=== PATIENT | female | born 1940 | race Caucasian/White ===

== ENCOUNTER 2019-03-11 15:21 | Day surgery (SDC) | payer MEDICARE ==
[2019-03-11 17:54] VITALS: BMI 14.8
[2019-03-11] MEDS ORDERED: diphenhydrAMINE 25 MG CAP PO SCH (18:00)
[2019-03-11] MEDS ORDERED: Acetaminophen 500 MG TAB PO SCH (18:00)
[2019-03-11 19:44] VITALS: TEMP 98.1
[2019-03-12 00:04] VITALS: BP 114/58
[2019-03-12] MEDS ORDERED: FLU VACC TS2019-20(65YR UP)/PF 180 MCG/0.5 ML SYRINGE IM ONE (09:00)
== END 2019-03-11 23:59 | disposition home or self-care (01) ==
LOC: ERS 15:21 → EDSTATUS 16:15 → SDC/OP 17:04 → 2SW 17:15 → SDC/OP 23:59
PROVIDERS: ATTEND Internal Medicine Hematology & Oncology
PROC: 30233N1 Transfusion of Nonautologous Red Blood Cells into Peripheral Vein, Percutaneous Approach (ICD-10-PCS; principal; 2019-03-11)
DX: D64.9 Anemia, unspecified (principal); D69.6 Thrombocytopenia, unspecified
CPT/HCPCS: 36430; 86850; 86900; 86901; 86920; P9016; Q0163

== ENCOUNTER 2019-03-14 12:47 | Day surgery (SDC) | payer MEDICARE ==
[2019-03-14] MEDS ORDERED: diphenhydrAMINE 25 MG CAP PO SCH (13:15)
[2019-03-14] MEDS ORDERED: Acetaminophen 500 MG TAB PO SCH (13:15)
[2019-03-14] MEDS ORDERED: Sodium Chloride 0.9% 20 ML ONE (13:24)
[2019-03-14 14:55] VITALS: BP 117/58; TEMP 98.1
== END 2019-03-14 14:55 | disposition home or self-care (01) ==
LOC: ONC/OP 12:47
PROVIDERS: ATTEND Internal Medicine Hematology & Oncology
PROC: 30233N1 Transfusion of Nonautologous Red Blood Cells into Peripheral Vein, Percutaneous Approach (ICD-10-PCS; principal; 2019-03-14)
PROC: 30233R1 Transfusion of Nonautologous Platelets into Peripheral Vein, Percutaneous Approach (ICD-10-PCS; 2019-03-14)
DX: D69.6 Thrombocytopenia, unspecified (principal)
CPT/HCPCS: 36430; 86900; 86901; J1642; P9035; Q0163

== ENCOUNTER 2019-03-28 12:41 | Day surgery (SDC) | payer MEDICARE ==
[2019-03-28] MEDS ORDERED: Acetaminophen 500 MG TAB PO SCH (13:00)
[2019-03-28] MEDS ORDERED: diphenhydrAMINE 25 MG CAP PO SCH (13:00)
[2019-03-28] MEDS ORDERED: Sodium Chloride 0.9% 20 ML ONE (13:18)
[2019-03-28 15:27] VITALS: TEMP 98.5
[2019-03-28 15:41] VITALS: BP 101/55
== END 2019-03-28 15:41 | disposition home or self-care (01) ==
LOC: ONC/OP 12:41
PROVIDERS: ATTEND Internal Medicine Hematology & Oncology
PROC: 30233R1 Transfusion of Nonautologous Platelets into Peripheral Vein, Percutaneous Approach (ICD-10-PCS; principal; 2019-03-28)
DX: D69.6 Thrombocytopenia, unspecified (principal)
CPT/HCPCS: 36430; 80053; 82248; 83615; 83735; 84100; 84550; 86900; 86901; J1642; P9035; Q0163

== ENCOUNTER 2019-04-04 13:28 | Day surgery (SDC) | payer MEDICARE ==
[2019-04-04] MEDS ORDERED: diphenhydrAMINE 25 MG CAP PO SCH (14:00)
[2019-04-04] MEDS ORDERED: Acetaminophen 500 MG TAB PO SCH (14:00)
[2019-04-04] MEDS ORDERED: Loperamide HCl 2 MG CAP PO SCH (15:00)
[2019-04-04] MEDS ORDERED: Sodium Chloride 0.9% 10 ML ONE ×2 (15:18→19:11)
[2019-04-04] MEDS ORDERED: Sodium Chloride 0.9% 0 ML ONE (15:18)
[2019-04-04 18:08] VITALS: TEMP 98.7
[2019-04-04 19:31] VITALS: BP 110/56
== END 2019-04-04 19:25 | disposition home or self-care (01) ==
LOC: ONC/OP 13:28
PROVIDERS: ATTEND Internal Medicine Hematology & Oncology
PROC: 30233H1 Transfusion of Nonautologous Whole Blood into Peripheral Vein, Percutaneous Approach (ICD-10-PCS; principal; 2019-04-04)
DX: D64.9 Anemia, unspecified (principal); D69.6 Thrombocytopenia, unspecified
CPT/HCPCS: 36430; 80053; 82248; 83615; 83735; 84100; 84550; 86850; 86900; 86901; J1642; P9016; P9035; Q0163

== ENCOUNTER 2019-04-11 20:05 | Inpatient (IN) | payer MEDICARE ==
[2019-04-11] MEDS ORDERED: Norepinephrine 8 MG/0.9% NS 250 ML IVPB PRN (20:31)
[2019-04-11] MEDS ORDERED: Acetaminophen 650 MG/20.3 ML UDCUP PO PRN (20:31)
[2019-04-11] MEDS ORDERED: Mag-Al 1200 mg/1200 mg/30 ML UDCUP PO PRN (20:31)
[2019-04-11] MEDS ORDERED: Ondansetron PF 4 MG/2 ML Vial IVP PRN (20:31)
[2019-04-11] MEDS ORDERED: CCU Electrolyte Replacement 1 EACH IVPB ONE (20:31)
[2019-04-11] MEDS ORDERED: Ondansetron ODT 4 MG TAB PO PRN (20:34)
[2019-04-11] MEDS ORDERED: HYDROcodone/Acetaminophen 5/325 mg Tablet PO PRN (20:34)
[2019-04-11] MEDS ORDERED: Bisacodyl 5 MG TAB PO PRN (20:34)
[2019-04-11] MEDS ORDERED: Acetaminophen 325 MG TAB PO PRN (20:34)
[2019-04-11] MEDS ORDERED: Potassium Phosphate 12 MMOL in Sodium Chloride 0.9% 250 ML 250 ML IV PRN (20:37)
[2019-04-11] MEDS ORDERED: Potassium Phosphate 9 MMOL in Sodium Chloride 0.9% 100 ML IVPB PRN (20:37)
[2019-04-11] MEDS ORDERED: Magnesium 2 GM/50 ML 2 GM in Premix Bag 1 BAG IVPB PRN (20:37)
[2019-04-11] MEDS ORDERED: Potassium Chloride 40 MEQ in Premix Bag 1 BAG IVPB PRN (20:37)
[2019-04-11] MEDS ORDERED: Potassium Chloride 40 MEQ in Sodium Chloride 0.9% 250 ML 250 ML IVPB PRN (20:37)
[2019-04-11] MEDS ORDERED: Magnesium Oxide 400 MG TAB PO PRN ×2 (20:37)
[2019-04-11] MEDS ORDERED: Potassium Phosphate 15 MMOL in Sodium Chloride 0.9% 250 ML 250 ML IV PRN (20:37)
[2019-04-11] MEDS ORDERED: PHOS-NAK 1 PKT PACK PO PRN ×2 (20:37)
[2019-04-11] MEDS ORDERED: CCU ELECTROLYTE REPLACEMENT PROTOCOL FS PRN (20:37)
[2019-04-11] MEDS ORDERED: Sodium Chloride 0.9% 1,000 ML IV SCH (20:45)
[2019-04-11] MEDS ORDERED: Morphine 2 MG/ML SYRINGE SLOW IVP PRN (20:50)
[2019-04-11] MEDS ORDERED: Vancomycin HCl 1 GM in Premix Bag 1 BAG IVPB SCH (21:00)
[2019-04-11] MEDS ORDERED: Famotidine 20 MG TAB PO SCH (21:00)
--- NOTE | 2019-04-11 21:02 | PDOC.HHP ---
Hospitalist HPI - History of Present Illness Septic shock History of Present Illness: Ms. Crews is a pleasant 79-year-old female with past medical history of AML and extensive use of chemotherapy presents with septic shock. Patient initially presented to [facility], was diagnosed with septic shock from UTI, pancytopenia with the platelet level of 2, and was transferred to [facility] for higher level of care. Patient normally follows up with Dr. Foster who is her medical oncologist. I find the patient in the intensive care unit she is laying flat, resting in the bed in no apparent distress. Patient is oxygenating adequately on room air. Patient is on Levophed to maintain mean arterial blood pressure greater than 65. Patient currently denies pain. She states she is breathing well. She has not noticed any black or blood in her stool. Patient answering questions appropriately though she is slow to answer some questions. Patient admitted to the intensive care unit, discussed the case with gas pump attendant who agrees to consult. We will consult patient's oncologist for continuity of care. Prognosis guarded. Hospitalist ROS - Review of Systems All other systems reviewed; all pertinent +/- noted in HPI/Subj Hospitalist History - Past Medical History Source: patient, old records Cardiac: denies: AFIB, CHF, HTN Pulmonary: denies: CVA/TIA/stroke, congestive heart failure, COPD Gastrointestinal: denies: GI bleed Heme/Onc: reports: Cancer (AML) Musculoskeletal: reports: Osteoarthritis - Past Surgical History Past Surgical History: reports: Other - Family History Family History: reports: hypertension - Social History Smoking Status: Never smoker Alcohol: reports: None Drugs: reports: none Living Situation: With Family Domestic Violence: Negative Activity level: independent ambulation - Exam General Appearance: NAD, awake alert ENT: normocephalic atraumatic, moist mucosa Neck: supple, symmetric, no JVD Heart: no murmur, no gallops, no rubs Respiratory: CTAB, no wheezes, no rales, no ronchi, normal chest expansion, no tachypnea Gastrointestinal: soft, non-tender, non-distended, normal bowel sounds, no palpable masses, no hepatomegaly, no splenomegaly, no bruit Extremities: 1+ LE edema Skin: no rashes Neurological: cranial nerve grossly intact, no focal deficits Musculoskeletal: generalized weakness Psychiatric: normal behavior, oriented to person, flat affect Hospitalist H&P A/P - Problem (1) Septic shock Code(s): A41.9 - SEPSIS, UNSPECIFIED ORGANISM; R65.21 - SEVERE SEPSIS WITH SEPTIC SHOCK Status: Acute (2) UTI (urinary tract infection) Status: Acute (3) Hypotension Status: Acute (4) AML (acute myeloblastic leukemia) Code(s): C92.00 - ACUTE MYELOBLASTIC LEUKEMIA, NOT HAVING ACHIEVED REMISSION Status: Acute (5) Pancytopenia Code(s): D61.818 - OTHER PANCYTOPENIA Status: Acute (6) Thrombocytopenia Code(s): D69.6 - THROMBOCYTOPENIA, UNSPECIFIED Status: Acute (7) Failure to thrive Code(s): [id number] - Status: Acute - Plan Plan: Plan: admit to intensive care unit pulmonology/critical-care consultation, recommendations appreciated oncology consultation, recommendations appreciated vasoactive medications to maintain mean arterial blood pressure greater than 65 IV fluids broad-spectrum antibiotics blood culture urine culture de-escalate to culture and sensitivity as able repeat bloodwork stat CXR transfuse packed red blood cells for hemoglobin less than 7.0 transfuse platelets for value less then 10,000, or less than 50,000 if she develops bleeding continue other home medications as able blood pressure support blood sugar control G.I. prophylaxis DVT prophylaxis disposition: prognosis guarded.
[2019-04-11 21:22] LABS: Lactic Acid 1.4 mmol/L (0.5-2.2)
[2019-04-11 21:25] LABS: Anion Gap 12 mmol/L (10-20); BUN (Urea Nitrogen) 7 mg/dL (9.8-20.1); Calc. Creatinine Clearance 0 mL/min (70-130); Calcium 7.6 mg/dL (7.8-10.44); Carbon Dioxide 21 mmol/L (23-31); Chloride 105 mmol/L (98-107); Estimated GFR-MDRD Greater than 90; Glucose 127 mg/dL (83-110); Sodium 135 mmol/L (136-145)
[2019-04-11 21:51] LABS: Differential Comment Immature Cell(s); Hemoglobin 7.3 g/dL (12.0-16.0); Hypochromia SLIGHT = 6-15 cells (100X) (0-5/hpf); Lymphocytes 15 % (21-51); MDiff Complete? YES; Mean Corpuscular HGB CONC 36.1 g/dL (32.0-36.0); Mean Corpuscular Hemoglobin 31.4 pg (27.0-31.0); Mean Platelet Volume 6.9 fL (7.4-10.4); Monocytes 1 % (0-10); Platelet Count 72 thou/uL (130-400); Platelet Morphology Comment Appears Decreased; RBC Distribution Width 13.1 % (11.5-14.5); Red Blood Cell (RBC) Count 2.33 mill/uL (4.20-5.40); Reflex for Review?? YES; White Blood Cell (WBC) Count 8.2 thou/uL (4.8-10.8)
[2019-04-11] MEDS ORDERED: Vancomycin HCl 750 MG in Sodium Chloride 0.9% 250 ML 250 ML IVPB SCH (22:00)
[2019-04-11] MEDS: Cefepime 2 GM in Sodium Chloride 0.9% 100 ML IVPB SCH (22:21)
[2019-04-11] MEDS: Famotidine 20 MG TAB PO SCH (22:25)
[2019-04-12 05:13] LABS: Differential Comment Immature Cell(s); Hemoglobin 6.6 g/dL (12.0-16.0); Hypochromia SLIGHT = 6-15 cells (100X) (0-5/hpf); Lymphocytes 6 % (21-51); MDiff Complete? YES; Mean Corpuscular Hemoglobin 31.1 pg (27.0-31.0); Mean Corpuscular Volume 86.4 fL (78.0-98.0); Platelet Count 53 thou/uL (130-400); Platelet Morphology Comment Appears Decreased; Red Blood Cell (RBC) Count 2.12 mill/uL (4.20-5.40); White Blood Cell (WBC) Count 3.9 thou/uL (4.8-10.8)
[2019-04-12 05:20] LABS: ALT (SGPT) 7 U/L (8-55); AST (SGOT) 11 U/L (5-34); Albumin 2.6 g/dL (3.4-4.8); Alkaline Phosphatase 72 U/L (40-110); Anion Gap 12 mmol/L (10-20); BUN (Urea Nitrogen) 6 mg/dL (9.8-20.1); Bilirubin, Total 0.3 mg/dL (0.2-1.2); Calc. Creatinine Clearance 53 mL/min (70-130); Calcium 7.5 mg/dL (7.8-10.44); Carbon Dioxide 22 mmol/L (23-31); Chloride 105 mmol/L (98-107); Estimated GFR-MDRD Greater than 90; Globulin 2.1 g/dL (2.4-3.5); Glucose 100 mg/dL (83-110); Protein, Total 4.7 g/dL (6.0-8.3); Sodium 136 mmol/L (136-145)
[2019-04-12 05:23] LABS: Potassium 2.7 mmol/L (3.5-5.1)
[2019-04-12] MEDS: Potassium Chloride 20 MEQ TAB PO PRN ×2 (05:45→11:40)
--- NOTE | 2019-04-12 08:40 | CON ---
DATE OF CONSULTATION: HISTORY OF PRESENT ILLNESS: An 79-year-old female with known AML, presented to the hospital with sepsis and hypertension. Apparently, a diagnosis of UTI was made with severe pancytopenia. Systolic blood pressure was apparently 65. She is here for ongoing evaluation. She was on Levophed last time, which was discontinued. This morning, she is somewhat encephalopathic, unable to tell us why she is here. She is apparently a nonsmoker. No alcohol abuse. PAST MEDICAL HISTORY: Pertinent otherwise for diagnoses of acute myelogenous leukemia, history of atrial fibrillation, hypertension. PAST SURGICAL HISTORY: None recently. HOME MEDICATIONS: Unknown. ALLERGIES: UNKNOWN. REVIEW OF SYSTEMS: Otherwise, unremarkable. She is encephalopathic. PHYSICAL EXAMINATION: VITAL SIGNS: Blood pressure is 99/51, respirations 15, temperature 99. CHEST: Decreased breath sounds. No wheezing. CARDIAC: Normal S1 and S2. No gallops. ABDOMEN: No masses. LABORATORY DATA: White count 9000, H and H 6 and 18, platelets count 53. Lytes are normal. Potassium is 2.7. Albumin is low at 2.6. ASSESSMENT AND PLAN: 1. Hypotension, rule out sepsis. 2. Pancytopenia, acute myeloid leukemia on chemotherapy. She is on broad-spectrum antibiotics, which are continued. Baseline chest x-ray. Cortisol level is being ordered. Supportive care, PT. Consultation note, 70 minutes, 50% direct patient care. Job ID: [id number]
--- NOTE | 2019-04-12 08:54 | PDOC.HOSPP ---
- Subjective Encounter Date: 04/12/19 Encounter Time: 09:00 Subjective: Continues with urinary frequency. Off pressors and alert this AM. No specific complaints. Her hb is 6.6 this morning. Denies any bleeding symptoms. - Objective Vital Signs & Weight: Vital Signs (12 hours) Temp Pulse Ox 04/12/19 07:00 99.2 F 04/12/19 06:54 94 L 04/12/19 04:00 99.2 F 04/12/19 00:00 98.7 F 04/11/19 22:00 98.0 F 04/11/19 21:00 97 Weight Weight 89 lb 8.123 oz Most Recent Monitor Data Heart Rate from ECG 81 NIBP 99/51 NIBP BP-Mean 67 Respiration from ECG 17 SpO2 95 I&O: 04/11/19 04/12/19 04/13/19 06:59 06:59 06:59 Intake Total 911.9 Output Total 250 Balance 661.9 Result Diagrams: 04/12/19 04:00 04/12/19 15:58 Hospitalist ROS - Review of Systems All other systems reviewed; all pertinent +/- noted in HPI/Subj - Medication Medications: Active Medications Generic Name Dose Route Start Last Admin Trade Name Freq PRN Reason Stop Dose Admin Famotidine 20 mg 04/11/19 21:00 04/11/19 22:25 Pepcid PO 20 mg HS PEEP Administration Cefepime HCl 2 gm/ Sodium 100 mls @ 200 mls/hr 04/11/19 21:00 04/11/19 22:21 Chloride IVPB 100 mls Q24HR PEPE Administration Potassium Chloride 40 meq 04/11/19 20:37 04/12/19 05:45 K-Dur PO 40 meq ASDIR PRN Administration FOR SERUM K+ 2.5 - 3.5 - Exam General Appearance: NAD, ill appearing Eye: PERRL, anicteric sclera ENT: normocephalic atraumatic, no oropharyngeal lesions, moist mucosa Neck: supple, symmetric, no JVD, no thyromegaly, no lymphadenopathy, no carotid bruit Heart: RRR, no murmur, no gallops, no rubs, normal peripheral pulses Respiratory: CTAB, no wheezes, no rales, no ronchi, normal chest expansion, no tachypnea, normal percussion Gastrointestinal: soft, non-tender, non-distended, normal bowel sounds, no palpable masses, no hepatomegaly, no splenomegaly, no bruit Extremities: no cyanosis, no clubbing, no edema Skin: normal turgor, no lesions, no rashes Neurological: cranial nerve grossly intact, normal sensation to touch, no weakness, no focal deficits, no new deficit Musculoskeletal: normal tone, normal strength, no muscle wasting Psychiatric: normal affect, normal behavior, A&O x 3 Hosp A/P (1) Septic shock Code(s): A41.9 - SEPSIS, UNSPECIFIED ORGANISM; R65.21 - SEVERE SEPSIS WITH SEPTIC SHOCK Status: Acute (2) UTI (urinary tract infection) Status: Acute (3) AML (acute myeloblastic leukemia) Code(s): C92.00 - ACUTE MYELOBLASTIC LEUKEMIA, NOT HAVING ACHIEVED REMISSION Status: Acute (4) Hypokalemia Code(s): E87.6 - HYPOKALEMIA Status: Acute (5) Failure to thrive Code(s): [id number] - Status: Acute (6) Pancytopenia Code(s): D61.818 - OTHER PANCYTOPENIA Status: Acute (7) Thrombocytopenia Code(s): D69.6 - THROMBOCYTOPENIA, UNSPECIFIED Status: Acute (8) Symptomatic anemia Code(s): D64.9 - ANEMIA, UNSPECIFIED Status: Acute - Plan Continue with cefepime and vancomycin, pending culture results Continue to replete potassium and magnesium as directed Discontinue fluids, as she is tolerating p.o. intake For anemia, type and crossmatch 2 units for Hb 6.6, however will discuss with oncology about need for transfusion given she has AML Continue PT/OT Okay to transfer, if cleared by oncology Disposition: Continue to treat infection. Coordinate with pulmonary and oncology. Candidate for hospice given her overall condition.
--- NOTE | 2019-04-12 08:59 | RAD ---
Chest one view HISTORY: Sepsis. FINDINGS: No comparison. Cardiac silhouette and pulmonary vasculature are unremarkable. Mediastinum i s midline calcified granulomata are consistent with healed granulomatous disease. Linear parenchymal opacity at the left base has the appearance of atelectasis. There is also blunting of the left lateral costophrenic angle. No lobar consolidation or evidence of pneumothorax. Right upper extremity PICC is partially visualized. monitoring manager leads overlie the chest. IMPRESSION: Small amount of left pleural fluid with left basilar atelectasis. Cause is not evident.
[2019-04-12 10:03] LABS: Potassium 3.1 mmol/L (3.5-5.1)
--- NOTE | 2019-04-12 16:07 | CON ---
DATE OF CONSULTATION: REASON FOR CONSULTATION: AML. HISTORY OF PRESENT ILLNESS: Ms. Crews is an 79-year-old female who has acute myelogenous leukemia and has recently failed a clinical trial at [facility] of azacitidine, venetoclax, and pevonedistat. She has been transfusion dependent, requiring transfusions weekly. She has had pancytopenia. She was last seen in our office on , the for CBC. Her white count was 1.4, hemoglobin was 8.8, and platelets were 33,000. Over the last few days, she has gotten progressively weaker and had been unable to get out of bed. She presented to the [facility] and was diagnosed with septic shock from a UTI. Her platelet count was 2. She was started on antibiotics and Levophed and placed in their ICU. She was transfused platelets and eventually transferred to our facility for further treatment. She has been weaned off vasopressors. The patient was seen in the ICU with her son, Ken, present. She has a poor appetite, but denies any pain. No bleeding. PAST MEDICAL HISTORY: 1. AML. 2. Pancytopenia secondary to AML and chemo. 3. Arthritis. 4. History of stroke. 5. History of endometrial cancer in 2005. PAST SURGICAL HISTORY: Knee replacement. ALLERGIES: NO KNOWN DRUG ALLERGIES. HOME MEDICATIONS: 1. Atorvastatin 20. 2. Biotin. 3. Calcium carbonate. 4. Lomotil. 5. Citalopram. 6. Famotidine. 7. Fexofenadine. 8. Fluconazole. 9. Keflex. 10. Levothyroxine. 11. Potassium chloride. 12. Temazepam. 13. Tramadol. 14. Valacyclovir. 15. Vitamin D. FAMILY HISTORY: Noncontributory. SOCIAL HISTORY: , has 4 children. Lives with her spouse. No alcohol, tobacco, or illicit drug use. REVIEW OF SYSTEMS: Ten-point review of systems is negative except for noted in HPI. PHYSICAL EXAMINATION: VITAL SIGNS: Temperature 98.7, pulse is 76, respiratory rate 17, BP is 111/65, and she is 97% on room air. GENERAL: This is a frail female, in no acute distress. HEENT: Normocephalic and atraumatic. Pupils are equal and reactive to light. NECK: Supple. CV: Regular rate and rhythm. LUNGS: Clear. ABDOMEN: Soft and nontender. Bowel sounds are positive. EXTREMITIES: There is no clubbing or cyanosis. SKIN: No rash. HEMATOLOGIC: No petechiae or purpura. NEUROLOGIC: Nonfocal. PERTINENT LABORATORY DATA AND X-RAYS: Current WBCs are 3.9, hemoglobin 6.6, hematocrit 18.3, and platelet count 53,000. She has 94% blasts in peripheral blood. Sodium is 136, potassium 3.1, chloride 105, CO2 is 22, BUN is 6, and creatinine 0.54. Lactic acid 1.4. Calcium 7.5, bilirubin 0.3, AST 11, ALT 7, and alkaline phosphatase is 72. Serum total protein is 4.7, albumin 2.6, and globulin 2.1. Cortisol is 21. ASSESSMENT: 1. Acute myelogenous leukemia. 2. Pancytopenia secondary to acute myelogenous leukemia. DISCUSSION: The patient is transfusion dependent. We had a long conversation about goals of care and end-of-life wishes. She agrees that she wishes no heroic measures to be done and agrees for a DNAR. She wishes to go home on hospice. She does have a granddaughter coming in from out of the country this weekend. My plan is to transfuse her prior to discharge, so she will have quality time with her family. She is on [facility] and will be transitioned to their hospice program. I discussed with their sales representatives. The case has been discussed with Dr. Cui. Thank you for the consult. Job ID: [id number]
[2019-04-12 16:23] LABS: Potassium 3.7 mmol/L (3.5-5.1)
[2019-04-12] MEDS ORDERED: Prevnar 13-Val Conj/PF 0.5 ML SYRINGE IM ONE (21:00)
[2019-04-12] MEDS ORDERED: FLU VACC TS2019-20(65YR UP)/PF 180 MCG/0.5 ML SYRINGE IM ONE (21:00)
[2019-04-12] MEDS: Vancomycin HCl 500 MG in Sodium Chloride 0.9% 100 ML IVPB SCH (21:21)
[2019-04-12] MEDS: Famotidine 20 MG TAB PO SCH (21:36)
[2019-04-12] MEDS: Cefepime 2 GM in Sodium Chloride 0.9% 100 ML IVPB SCH (22:50)
[2019-04-13 06:10] LABS: ALT (SGPT) 8 U/L (8-55); AST (SGOT) 9 U/L (5-34); Albumin 2.6 g/dL (3.4-4.8); Alkaline Phosphatase 70 U/L (40-110); Anion Gap 10 mmol/L (10-20); BUN (Urea Nitrogen) 4 mg/dL (9.8-20.1); Bilirubin, Total 0.5 mg/dL (0.2-1.2); Calc. Creatinine Clearance 58 mL/min (70-130); Calcium 8.1 mg/dL (7.8-10.44); Carbon Dioxide 23 mmol/L (23-31); Chloride 104 mmol/L (98-107); Estimated GFR-MDRD Greater than 90; Globulin 2.4 g/dL (2.4-3.5); Glucose 89 mg/dL (83-110); Potassium 3.6 mmol/L (3.5-5.1); Sodium 133 mmol/L (136-145)
[2019-04-13 06:24] LABS: Blast 81 % (0-0); Hemoglobin 8.7 g/dL (12.0-16.0); Lymphocytes 17 % (21-51); MDiff Complete? YES; Mean Corpuscular HGB CONC 33.3 g/dL (32.0-36.0); Mean Corpuscular Hemoglobin 29.6 pg (27.0-31.0); Mean Platelet Volume 8.1 fL (7.4-10.4); Monocytes 2 % (0-10); Platelet Count 42 thou/uL (130-400); Platelet Morphology Comment Appears Decreased; RBC Distribution Width 13.3 % (11.5-14.5); Red Blood Cell (RBC) Count 2.94 mill/uL (4.20-5.40); Reflex for Review?? NO; White Blood Cell (WBC) Count 3.5 thou/uL (4.8-10.8)
--- NOTE | 2019-04-13 08:16 | PDOC.MOPN ---
Interval History: she is still tired, she would like to go home. she does not think she will tolerate more treatment and neither do i - Vital Signs Vital Signs: Vital Signs (12 hours) Temp Pulse Resp BP Pulse Ox 04/13/19 07:27 97.8 F 66 16 120/70 95 04/13/19 03:00 98.1 F 78 20 127/81 95 04/13/19 00:25 98.4 F 68 20 116/70 96 04/12/19 21:00 98.8 F 84 18 120/69 93 L Weight Admit Weight 89 lb Weight 100 lb 2 oz Most Recent Monitor Data Heart Rate from ECG 77 NIBP 129/73 NIBP BP-Mean 91 Respiration from ECG 16 SpO2 95 - Physical Exam General: Other (frail, weak appearing) HEENT: Atraumatic Lungs: Clear to auscultation Cardiovascular: Regular rate Abdomen: Normal bowel sounds, Soft Extremities: No clubbing, No edema, Other (+ cachexia) Neurological: Normal speech Psych/Mental Status: Mental status NL - Labs Result Diagrams: 04/13/19 05:07 04/13/19 05:07 Lab results: Laboratory Results - last 24 hr 04/13/19 05:07: Sodium 133 L, Potassium 3.6, Chloride 104, Carbon Dioxide 23, Anion Gap 10, BUN 4 L, Creatinine 0.50 L, Estimated GFR (MDRD) Greater than 90 , Glucose 89, Calcium 8.1, Total Bilirubin 0.5, AST 9, ALT 8, Alkaline Phosphatase 70, Serum Total Protein 5.0 L, Albumin 2.6 L, Globulin 2.4, Albumin/ Globulin Ratio 1.1 L 04/13/19 05:07: WBC 3.5 L, RBC 2.94 L, Hgb 8.7 L, Hct 26.1 L, MCV 89.0, MCH 29.6 , MCHC 33.3, RDW 13.3, Plt Count 42 L, MPV 8.1, Neutrophils % (Manual) Not Reportable, Lymphocytes % (Manual) 17 L, Monocytes % (Manual) 2, Blast Cells % ( Manual) 81 H*, Plt Morphology Comment Appears Decreased L 04/12/19 15:58: Potassium 3.7 04/12/19 09:33: Cortisol 21.50 04/12/19 09:33: Potassium 3.1 L 04/12/19 06:45: Blood Type O POSITIVE, Antibody Screen NEGATIVE, Crossmatch See Detail 04/11/19 20:54: Smear Path Review - Pathology Pathology: blasts noted on peripheral smear A/P - Plan Plan: 1. hospice eval 2. home today or tomorrow 3. discuss with primary team 4. i have discussed this with [facility] 5. f/u in office prn
[2019-04-13] MEDS ORDERED: Loperamide HCl 2 MG CAP PO PRN (11:14)
--- NOTE | 2019-04-13 13:56 | PDOC.HOSPP ---
- Subjective Encounter Date: 04/13/19 Encounter Time: 13:56 Subjective: Received 2 units of PRBC yeterday. She overall feels comfortable. No complaints at this time. She would like to go on hospice care at home. - Objective Vital Signs & Weight: Vital Signs (12 hours) Temp Pulse Resp BP Pulse Ox 04/13/19 07:45 95 04/13/19 07:27 97.8 F 66 16 120/70 95 04/13/19 03:00 98.1 F 78 20 127/81 95 Weight Admit Weight 89 lb Weight 100 lb 2 oz Most Recent Monitor Data Heart Rate from ECG 77 NIBP 129/73 NIBP BP-Mean 91 Respiration from ECG 16 SpO2 95 I&O: 04/12/19 04/13/19 04/14/19 06:59 06:59 06:59 Intake Total 911.9 1095 Output Total 250 200 Balance 661.9 895 Result Diagrams: 04/13/19 05:07 04/13/19 05:07 Hospitalist ROS - Review of Systems All other systems reviewed; all pertinent +/- noted in HPI/Subj - Medication Medications: Active Medications Generic Name Dose Route Start Last Admin Trade Name Freq PRN Reason Stop Dose Admin Famotidine 20 mg 04/11/19 21:00 04/12/19 21:36 Pepcid PO 20 mg HS PEPE Administration Cefepime HCl 2 gm/ Sodium 100 mls @ 200 mls/hr 04/11/19 21:00 04/12/19 22:50 Chloride IVPB 100 mls Q24HR PEPE Administration Vancomycin HCl 500 mg/ Sodium 100 mls @ 100 mls/hr 04/12/19 22:00 04/12/19 21 :21 Chloride IVPB 100 mls 2200 PEPE Administration Loperamide HCl 2 mg 04/13/19 11:14 04/13/19 12:21 Imodium PO 2 mg PRN PRN Administration Diarrhea/Loose Stools - Exam General Appearance: NAD, awake alert, ill appearing General - other findings: cachetic Eye: PERRL, anicteric sclera ENT: normocephalic atraumatic, no oropharyngeal lesions, moist mucosa ENT - other findings: temporal wasting Neck: supple, symmetric, no JVD, no thyromegaly, no lymphadenopathy, no carotid bruit Heart: RRR, no murmur, no gallops, no rubs, normal peripheral pulses Respiratory: CTAB, no wheezes, no rales, no ronchi, normal chest expansion, no tachypnea, normal percussion Gastrointestinal: soft, non-tender, non-distended, normal bowel sounds, no palpable masses, no hepatomegaly, no splenomegaly, no bruit Extremities: no cyanosis, no clubbing, no edema Skin: normal turgor, no lesions, no rashes Neurological: cranial nerve grossly intact, normal sensation to touch, no weakness, no focal deficits, no new deficit Musculoskeletal: normal tone, normal strength, no muscle wasting Psychiatric: normal affect, normal behavior, A&O x 3 Hosp A/P (1) Septic shock Code(s): A41.9 - SEPSIS, UNSPECIFIED ORGANISM; R65.21 - SEVERE SEPSIS WITH SEPTIC SHOCK Status: Acute (2) UTI (urinary tract infection) Status: Acute (3) AML (acute myeloblastic leukemia) Code(s): C92.00 - ACUTE MYELOBLASTIC LEUKEMIA, NOT HAVING ACHIEVED REMISSION Status: Acute (4) Hypokalemia Code(s): E87.6 - HYPOKALEMIA Status: Acute (5) Failure to thrive Code(s): [id number] - Status: Acute (6) Pancytopenia Code(s): D61.818 - OTHER PANCYTOPENIA Status: Acute (7) Thrombocytopenia Code(s): D69.6 - THROMBOCYTOPENIA, UNSPECIFIED Status: Acute (8) Symptomatic anemia Code(s): D64.9 - ANEMIA, UNSPECIFIED Status: Acute - Plan Continue with cefepime and vancomycin Continue to replete potassium and magnesium as directed Continue PT/OT She is agreeable to hospice care as she is transfusion dependent AML. Disposition: Continue to treat infection. Coordinate with pulmonary and oncology. DC to hospice tomorrow morning once home connect lpn is available.
[2019-04-13] MEDS: Famotidine 20 MG TAB PO SCH (21:36)
[2019-04-13] MEDS: Cefepime 2 GM in Sodium Chloride 0.9% 100 ML IVPB SCH (21:36)
[2019-04-13] MEDS: Vancomycin HCl 500 MG in Sodium Chloride 0.9% 100 ML IVPB SCH (21:37)
[2019-04-13 22:07] LABS: Vancomycin, Trough 5.3 ug/mL
[2019-04-14 05:34] VITALS: BMI 16.9
[2019-04-14 06:11] LABS: Differential Comment Blast-Like Cell(s); Lymphocytes 35 % (21-51); MDiff Complete? YES; Mean Corpuscular HGB CONC 35.5 g/dL (32.0-36.0); Mean Corpuscular Hemoglobin 31.2 pg (27.0-31.0); Mean Platelet Volume 7.8 fL (7.4-10.4); Monocytes 6 % (0-10); Platelet Count 31 thou/uL (130-400); Platelet Morphology Comment Appears Decreased; RBC Distribution Width 13.2 % (11.5-14.5); Red Blood Cell (RBC) Count 2.89 mill/uL (4.20-5.40); White Blood Cell (WBC) Count 3.7 thou/uL (4.8-10.8)
[2019-04-14 06:19] LABS: ALT (SGPT) Less than 7 U/L (8-55); AST (SGOT) 8 U/L (5-34); Albumin 2.8 g/dL (3.4-4.8); Alkaline Phosphatase 74 U/L (40-110); Anion Gap 13 mmol/L (10-20); BUN (Urea Nitrogen) 5 mg/dL (9.8-20.1); Bilirubin, Total 0.4 mg/dL (0.2-1.2); Calc. Creatinine Clearance 61 mL/min (70-130); Calcium 8.2 mg/dL (7.8-10.44); Carbon Dioxide 23 mmol/L (23-31); Chloride 100 mmol/L (98-107); Estimated GFR-MDRD Greater than 90; Globulin 2.4 g/dL (2.4-3.5); Glucose 100 mg/dL (83-110); Potassium 3.3 mmol/L (3.5-5.1); Protein, Total 5.2 g/dL (6.0-8.3); Sodium 133 mmol/L (136-145)
[2019-04-14 07:51] VITALS: BP 159/78; TEMP 97.9
[2019-04-14] MEDS ORDERED: Vancomycin HCl 750 MG in Sodium Chloride 0.9% 250 ML 250 ML IVPB SCH (09:00)
--- NOTE | 2019-04-14 09:27 | PDOC.MOPN ---
Interval History: eating breakfast, no complaints. at bedside. - Vital Signs Vital Signs: Vital Signs (12 hours) Temp Pulse Resp BP Pulse Ox 04/14/19 07:51 97.9 F 66 16 159/78 H 97 Weight Admit Weight 89 lb Weight 95 lb 3.835 oz Most Recent Monitor Data Heart Rate from ECG 77 NIBP 129/73 NIBP BP-Mean 91 Respiration from ECG 16 SpO2 95 - Physical Exam General: Alert, Oriented x3, No acute distress HEENT: Atraumatic, PERRLA, EOMI, Mucous membr. moist/pink Lungs: Clear to auscultation, Normal air movement Cardiovascular: Regular rate, Normal S1, Normal S2, No murmurs, Gallops, Rubs Abdomen: Normal bowel sounds, Soft, No tenderness, No hepatospenomegaly, No masses Extremities: No clubbing, No cyanosis, No edema, Normal pulses, No tenderness/ swelling Skin: No rashes, No breakdown, No significant lesion Neurological: Normal gait, Normal speech, Strength at 5/5 X4 ext, Normal tone, Sensation intact, Cranial nerves 3-12 NL, Reflexes 2+ Psych/Mental Status: Mental status NL, Mood NL - Labs Result Diagrams: 04/14/19 05:29 04/14/19 05:29 Lab results: Laboratory Results - last 24 hr 04/14/19 05:29: Sodium 133 L, Potassium 3.3 L, Chloride 100, Carbon Dioxide 23, Anion Gap 13, BUN 5 L, Creatinine 0.50 L, Estimated GFR (MDRD) Greater than 90 , Glucose 100, Calcium 8.2, Total Bilirubin 0.4, AST 8, ALT Less than 7 L, Alkaline Phosphatase 74, Serum Total Protein 5.2 L, Albumin 2.8 L, Globulin 2.4 , Albumin/Globulin Ratio 1.2 04/14/19 05:29: WBC 3.7 L, RBC 2.89 L, Hgb 9.0 L, Hct 25.4 L, MCV 88.0, MCH 31.2 H, MCHC 35.5, RDW 13.2, Plt Count 31 L, MPV 7.8, Neutrophils % (Manual) Not Reportable, Lymphocytes % (Manual) 35, Monocytes % (Manual) 6, Differential Comment Blast-Like Cell(s), Other Cell Type 59, Plt Morphology Comment Appears Decreased L 04/13/19 21:14: Vancomycin Trough 5.3 Status: lab reviewed by me A/P - Problem (1) AML (acute myeloblastic leukemia) Current Visit: Yes Code(s): C92.00 - ACUTE MYELOBLASTIC LEUKEMIA, NOT HAVING ACHIEVED REMISSION Status: Acute (2) Pancytopenia Current Visit: Yes Code(s): D61.818 - OTHER PANCYTOPENIA Status: Acute - Plan Plan: Home with hospice today. She is aware that she will not have any more transfusions.
--- NOTE | 2019-04-14 17:56 | PDISCHARGE ---
Discharge - Disposition Disposition: HOSPICE-HOME - Patient Instructions Pre-Printed Education: Urinary Tract Infection, Adult Additional Instructions: HOME WITH HOSPICE Care Plan Goals: FOCUS: Transition from Acute Care after Discharge GOAL: Successful transition to care in the community YOUR TASKS: (1) review all information outlined in your discharge packet (2) follow any instructions outlined in your discharge packet (3) contact your primary care provider if you have questions or need additional assistance - Referrals and PCP Follow-Up Referrals and PCP Follow-Up: PROVIDER,NO PCP [Primary Care Provider] - - Activity Instructions Activity:: Activity as Tolerated - Nourishment Instructions Nourishment:: Regular Diet - IV Therapy Instructions IV Therapy:: PICC Line Care Course - Course Orders, Labs, Meds: Admitted for hypotension due to suspected sepsis due to UTI. Urinalysis from other institution suggestive of bacterial UTI, treated with broad spectrum abx, fluids in the ICU. Has severe pancytopenia due to tranfusion dependent AML. Showed repsonse to treatment and was transfered to telemetry floors. Family interested in pursuing hospice care and oncology team in agreement. Will be discharged to home hospice and a teacher home therapy will be available for family during the day. Overall very poor prognosis as she is transfusion dependent. Comfort care and hospice care best interest given clinical picture.
--- NOTE | 2019-04-14 18:00 | PDOC.BPN ---
- Brief Progress Note DISCHARGE SUMMARY [facility] Discharge Patient Name: LISA ZAMAN Date of : 1940 Patient Status: Inpatient Attending Provider: Benji Johnston Date: 04/14/19 17:56 Initialization Date: 04/14/19 17:56 Discharge - Disposition Disposition: HOSPICE-HOME - Patient Instructions Pre-Printed Education: Urinary Tract Infection, Adult Additional Instructions: HOME WITH HOSPICE Care Plan Goals: FOCUS: Transition from Acute Care after Discharge GOAL: Successful transition to care in the community YOUR TASKS: (1) review all information outlined in your discharge packet (2) follow any instructions outlined in your discharge packet (3) contact your primary care provider if you have questions or need additional assistance - Referrals and PCP Follow-Up Referrals and PCP Follow-Up: PROVIDER,NO PCP [Primary Care Provider] - - Activity Instructions Activity:: Activity as Tolerated - Nourishment Instructions Nourishment:: Regular Diet - IV Therapy Instructions IV Therapy:: PICC Line Care Course - Course Orders, Labs, Meds: Admitted for hypotension due to suspected sepsis due to UTI. Urinalysis from other institution suggestive of bacterial UTI, treated with broad spectrum antibiotics, fluids in the ICU. Has severe pancytopenia due to tranfusion dependent AML. Showed repsonse to treatment and was transfered to telemetry floors. Family interested in pursuing hospice care and oncology team in agreement. Will be discharged to home hospice and a home child care provider will be available for family during the day. Overall very poor prognosis as she is transfusion dependent. Comfort care and hospice care best interest given clinical picture. Total time spent on dischage planning and management > 32 minutes.
== END 2019-04-14 12:49 | disposition hospice, home (50) | DRG 871 ==
LOC: CDU 20:05 → CCU 20:14 → T4-B 04-12 21:09
PROVIDERS: ADMIT Internal Medicine; ATTEND Internal Medicine
PROC: 30233N1 Transfusion of Nonautologous Red Blood Cells into Peripheral Vein, Percutaneous Approach (ICD-10-PCS; principal; 2019-04-12)
DX: A41.9 Sepsis, unspecified organism (principal); D61.811 Other drug-induced pancytopenia; R65.21 Severe sepsis with septic shock; N39.0 Urinary tract infection, site not specified; C92.00 Acute myeloblastic leukemia, not having achieved remission; R64 Cachexia; Z68.1 Body mass index [BMI] 19.9 or less, adult; Z66 Do not resuscitate; T45.1X5A Adverse effect of antineoplastic and immunosuppressive drugs, initial encounter; M19.90 Unspecified osteoarthritis, unspecified site; R62.7 Adult failure to thrive; I48.91 Unspecified atrial fibrillation; I10 Essential (primary) hypertension; E87.6 Hypokalemia; Z86.73 Personal history of transient ischemic attack (TIA), and cerebral infarction without residual deficits; Z79.899 Other long term (current) drug therapy
CPT/HCPCS: 36415; 36430; 71045; 80048; 80053; 80202; 82533; 83605; 85007; 85025; 85027; 85060; 86850; 86900; 86901; 87040; 87086; J0692; J1642; J3370; J3490; J7050; P9016